=== PATIENT | female | born 1990 | race Caucasian/White ===

== ENCOUNTER 2025-03-14 13:53 | Outpatient (AMB) | payer OTHER, SELFPAY ==
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
[2025-03-14 14:05] VITALS: BP 128/72; PULSE 72; O2SAT 98; BMI 28.3
== END 2025-03-14 14:38 | disposition home or self-care (01) ==
LOC: HO.PMC 13:54
PROVIDERS: PCP Physician Assistant; Visit Provider Nurse Practitioner Family
DX: M54.50 Low back pain, unspecified (principal); G89.29 Other chronic pain; M51.369 Other intervertebral disc degeneration, lumbar region without mention of lumbar back pain or lower extremity pain; G89.4 Chronic pain syndrome
CPT/HCPCS: 99204

== ENCOUNTER 2025-05-11 14:02 | Emergency (ER) | payer OTHER, SELFPAY ==
[2025-05-11] VITALS (8 sets, daily range): BP systolic 112–147; BP diastolic 65–82; PULSE 84–126; RESP 17–20; TEMP 36.8–37; O2SAT 96–97; BMI 27.9
--- NOTE | ~2025-05-11 | CT_ITS ---
CLINICAL HISTORY: blurry vision, lightheaded, unable to walk CT Head without contrast. CT angiography head and neck with contrast. 3D Postprocessing. Comparison: CT/SR - CT HEAD/BRAIN WO IV CON - 05/11/25 16:30 EST Findings: HEAD CT: No intra-axial mass, midline shift, hydrocephalus, or acute hemorrhage. No significant atrophy-like change or white matter disease. The visualized paranasal sinuses and mastoid air cells are normal. The orbits are within normal limits. There is no acute fracture. HEAD AND NECK CTA: Aortic arch and cervical great vessels are patent. Intracranial arteries are patent. No aneurysm, dissection, or occlusion. No abnormal intracranial enhancement. The visualized thyroid gland is unremarkable. No cervical mass or fluid collection. Lung apices clear. No acute fracture. IMPRESSION: 1. Unremarkable head CT. 2. Patent head and neck CTA. This document has been electronically signed by: Norman Lee MD on 05/11/2025 20:34:11
--- NOTE | ~2025-05-11 | CT_ITS ---
CLINICAL HISTORY: dizziness CT head without contrast Comparison: None provided Findings: No intra-axial mass, midline shift, hydrocephalus, or acute hemorrhage. No significant atrophy-like change or white matter disease. The visualized paranasal sinuses and mastoid air cells are normal. The orbits are unremarkable. There is no acute fracture. IMPRESSION: 1. No acute intracranial findings. This document has been electronically signed by: Norman Lee MD on 05/11/2025 17:52:17
--- NOTE | ~2025-05-11 | XR_ITS ---
CLINICAL HISTORY: gen weakness 1 view chest x-ray Comparison: None provided Findings: No consolidation or effusion. Heart size is normal. No acute fracture. IMPRESSION: 1. No acute findings. This document has been electronically signed by: Norman Lee MD on 05/11/2025 17:52:34
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
--- NOTE | 2025-05-11 14:15 | ECG_ITS ---
Test Reason : DIZZINESS Blood Pressure : */* mmHG Vent. Rate : 115 BPM Atrial Rate : 115 BPM P-R Int : 160 ms QRS Dur : 70 ms QT Int : 318 ms P-R-T Axes : 72 73 43 degrees QTcB Int : 439 ms Sinus tachycardia Right atrial enlargement Cannot rule out Anterior infarct , age undetermined Abnormal ECG No previous ECGs available Referred By: Gladys Vail Electronically Signed By: BECKY ESTRADA
[2025-05-11 14:41] LABS: MANUAL DIFF FLAG NO
[2025-05-11 14:43] LABS: Hematocrit 39.0 % (37.0-47.0); Hemoglobin 13.1 g/dl (12.0-16.0); Imm Gran Abs Auto 0.02 X10*3/uL (0.00-0.03); Imm Gran Pct Auto 0.2 % (0.0-0.4); Lymphocytes Absolute Auto 2.9 X10*3/uL (1.2-4.9); Mean Corpuscular HGB Conc 33.6 g/dl (31.0-35.0); Mean Corpuscular Hemoglobin 29.6 pg (27.0-33.0); Mean Corpuscular Volume 88.2 fL (80.0-98.0); NRBC Abs Auto 0.000 X10*3/uL (0.0-0.012); NRBC Pct Auto 0.0 /100WBC (0.0-0.2); Platelet Count 270 X10*3/uL (160-400); Red Blood Count 4.42 X10*6/uL (4.20-5.50); White Blood Count 8.6 X10*3/uL (4.8-10.8)
[2025-05-11 15:08] LABS: Alanine Aminotransferase 57 U/L (0-31); Albumin Level 4.8 g/dL (3.5-5.0); Alkaline Phosphatase 143 U/L (39-117); Anion Gap 13 (12-20); Aspartate Amino Transferase 27 U/L (5-31); Blood Urea Nitrogen 6 mg/dL (9-16); Calcium 9.3 mg/dL (8.4-10.2); Carbon Dioxide 23 mmol/L (22-29); Chloride 107 mmol/L (96-108); Creatinine Clr Calc Pharmacy 81.2; Estimated Glomerular Filt Rate > 60; Magnesium 1.9 mg/dL (1.6-2.6); Potassium 3.6 mmol/L (3.3-5.1); Sodium 139 mmol/L (135-145); Total Protein 7.5 g/dL (6.5-8.0)
[2025-05-11 15:17] LABS: Troponin-I High Sensitivity < 2.7 ng/L (<3.5-17.0)
--- OUTSIDE RECORDS SUMMARY | 2025-05-11 16:52 | XMS_ITS | Encounter Summary ---
Author Organization [employer] Address [address] [place] [address] [address] [place] [address] Care Team Providers Care Manager Supplier Name Role Phone Jose Isaacs MD Unavailable [phone] Pepe Licona NP Primary Care Provider [phone] Reason for Visit * Reason Comments Med Change Request Encounter Details Date Type Department Care Team (Late st Contact Info) Description 11/28/2022 Refill [facility] [address] [place] [address] Virginie Mckeon MD Elevated TSH; Heat intolerance Social History Tobacco Use Types Packs/Day Years Used Date Smoking Tobacco: Every Day Cigarettes Smokeless Tobacco: Never Alcohol Use Standard Drinks/Week Comments Not Currently 0 (1 standard drink = 0.6 oz pur e alcohol) Comments Unknown Sex and Gender Information Value Date Recorded Sex Assigned at Female 01/10/2023 11:09 AM EDT Legal Sex Female 11:43 AM EST Gender Identity Non-Binary 01/10/2023 11:09 AM EDT Sexual Orientation Lesbian or Christensen 01/10/2023 11 :09 AM EDT documented as of this encounter Miscellaneous Notes * Telephone Encounter - Pepe Licona NP - 11/30/2022 3:43 PM EDT Approving, but needs appt for additional refills. documented in this encounter Plan of Treatment Not on file documented as of this encounter Visit Diagnoses Diagnosis Elevated TSH Other abnormal blood chemistry Heat intolerance Unspecified effects of heat and light documented in this encounter Care Teams Manager Supplier Relationship Specialty Start Date End Date Pepe Licona NP [address] [place] [address] PCP - General Internal Medicine 09/07/22 Jose Isaacs MD [address] [place] [address] Referring Physician Internal Medicine 08/30/22 documented as of this encounter
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
--- OUTSIDE RECORDS SUMMARY | 2025-05-11 16:52 | XMS_ITS | Encounter Summary ---
Author Organization [employer] Address [address] [place] [address] [address], [place] [address] Care Team Providers Care Homicide Investigator Name Role Phone Marge Jones NP Primary Care Provider [phone] Jose Isaacs MD Unavailable [phone] Pepe Licona NP Primary Care Provider [phone] Encounter Details Date Type Department Care Team (Late st Contact Info) Description 07/14/2022 Orders Only [facility] [address] [place] [address] Giovany Ballard [address] [place] [address] Breast mass, left Social History Tobacco Use Types Packs/Day Years Used Date Smoking Tobacco: Never Assessed Comments Unknown Sex and Gender Information Value Date Recorded Sex Assigned at Female 01/10/2023 11:09 AM EDT Legal Sex Female 11:43 AM EST Gender Identity Non-Binary 01/10/2023 11:09 AM EDT Sexual Orientation Lesbian or Christensen 01/10/2023 11 :09 AM EDT COVID-19 Exposure Response Date Recorded In the last 10 days, have yo u been in contact with someone who was confirmed or suspected to have Coronavirus/COVID-19? No / Unsure 07/05/2022 1:48 PM EST documented as of this encounter Plan of Treatment Not on file documented as of this encounter Visit Diagnoses Diagnosis Breast mass, left Lump or mass in breast documented in this encounter Care Teams Homicide Investigator Relationship Specialty Start Date End Date Marge Jones NP PCP - General Internal Medicine 02/23/22 08/29/22 Pepe Licona NP [address] [place] [address] PCP - General Internal Medicine 09/07/22 Jose Isaacs MD [address] [place] [address] Referring Physician Internal Medicine 08/30/22 documented as of this encounter
--- OUTSIDE RECORDS SUMMARY | 2025-05-11 16:52 | XMS_ITS | Continuity of Care Document ---
Author Organization [employer] [facility] Address [address] [facility] [address] [place], [place] Phone [phone] Care Team Providers Care Histology Specialist Name Role Phone Sulma Ballard PA-C Care Team Information Receiv er Unavailable RUTH CERON M.D. Care Team Information Rec eiver Unavailable Sulma Ballard PA-C Primary Care Physician Unava ilable Problems Active Problems Provider Date Incontinence of feces Ruth Ceron M.D. On set: 01/10/2025 Graves' disease Ruth Ceron M.D. Onset: 0 07/04/2024 Social History Type Date Description Comments Sex Female Sex Unknown Allergies and adverse reactions Active Allergies Criticality Reaction Severity Comments Date Sulfasalazine Unable to assess criticality 07/04/2024 Product Containing Penicillin And Antibiotic (Product) Unable to assess criticality Not available 07/04/2024 Medications Active Medications SIG Qnty Indications Order ing Provider Date Fairfotgpjb08xj Tablets 1 tab by mouth every day x4d and 1/2 tab x3d 30tabs E05.00 Ruth Ceron M.D. 07/04/2024 Adderall XR10mg Caps ER 24HR Unknown Ondansetron HCL4mg Tablets Take 1 Tablet (4 MG) By Mouth If Needed For Nausea Or Vomiting. Unknown Nvkervyeb3zk Tablets Unknown Qayxchvgvz27ic Capsules Roxane Parada, MSN, STORE MGR-C Fluticasone Qyrueonyjl69ese/Act Suspension [place] 1 [place] By Intranasal Route Every Day Sulma Ballard PA-C Ventolin DDP976(90Base) mcg/Act Aerosol Sulma Ballard PA-C Dxdqbcwc41yo Tablets Take 5MG (Half Tab) In The Am And 10MG (Full Tab) In The PM Misha Alejandro MD Byfinzufpi726jq Capsules Take 3 Capsules By Mouth Every Morning Take 2 Capsules By Mouth AT Noon And 3 CA Unknown Qeovyksgswmo30vf Tablets Take 1 Tablet By Mouth Once A Day Unknown Lamotrigine EV837nu Tablets ER 24HR Kailey Minor NP Diclofenac Yvvpoh84dh Tablets DR Take 1 Tablet Twice A Day By Oral Route as Needed For 14 Days, For Joint Pain. Sulma Ballard PA-C Duloxetine NHA93jo Caps DR Part Unknown Duloxetine WNC49ek Caps DR Part Unknown History Medications Tenofovir Disoproxil Drukwnws188cb Tablets Unknown - 01/10/2025 Gzelcxr29jc Tablets Unknown - 01/10/2025 Sybjxbxvxawou698zh Tablets Unknown - 01/10/2025 Doxycycline Trdzljh188ya Capsules Unknown - 01/10/2025 Gwvszmjkjtu1sv Tablets Dispers Take 1 Tablet By Mouth If Needed Every 8 Hours For Nausea/Vomiting Pal Arizmendi, - 10/16/2024 Clindamycin MPY508cj Capsules Take 1 Capsule By Mouth Three Times A Day For 7 Days Meme Luna NP - 07/04/2024 Vitamin D31.25mg (20775 Ut) Capsules Sulma Ballard PA-C - 07/04/2024 Quetiapine Cyfgbhjp18gv Tablets Unknown - 01/10/2025 Cyclobenzaprine OYN02wh Tablets Take 1 Tablet By Mouth Twice A Day For 7 Days Pal Arizmendi DO - 07/04/2024 Rujecjkin34ko Tablets Pal Arizmendi DO - 07/04/2024 Levothyroxine Mnprrx43hbo Tablets Take 1 Tablet By Mouth Daily 30 Mins Prior To First Meal Of The Day On An Empty Sulma Ballard PA-C - 07/04/2024 Pwwfacsoswirf258lf Tablets Unknown - 07/04/2024 Doxycycline Ylxdinc343zb Capsules Unknown - 07/04/2024 Emtricitabine/Tenofovir Disoproxil Gtkhsrdf665-990xz Tablets Take 1 Tablet Every Day By Oral Route For 23 Days. Sulma Ballard PA-C - 07/04/2024 Jjomwmk44ow Tablets Sulma Ballard PA-C - 07/04/2024 Fluoxetine OVV63xp Capsules Take 1 Capsule By Mouth Every Day In The Morning Unknown - 07/04/2024 Valtoco 15 MG Dose7.5mg/0.1ML LQPK Leti Minore, STORE MGR - 01/10/2025 Fluoxetine NMT96nm Capsules Unknown - 07/04/2024 Lbukdjabbqu3ki Tablets Dispers Sulma Ballard PA-C - 07/04/2024 Levothyroxine Dbofxw65xab Tablets Take 1 Tablet (75 mcg) By Mouth Before Breakfast Unknown - 07/04/2024
--- OUTSIDE RECORDS SUMMARY | 2025-05-11 16:52 | XMS_ITS | Encounter Summary ---
Author Organization [employer] Address [address] [place] [address] 7 [place] [address] Care Team Providers Care Seconds Handler Name Role Phone Jose Isaacs MD Unavailable [phone] Pepe Licona NP Primary Care Provider [phone] Reason for Visit * Reason Comments Med Refill Encounter Details Date Type Department Care Team (Late st Contact Info) Description 08/16/2023 Refill [facility] [address] [place] [address] Pepe Licona NP [address] [place] [address] Elevated TSH; Heat intolerance Social History Tobacco Use Types Packs/Day Years Used Date Smoking Tobacco: Every Day Cigarettes Smokeless Tobacco: Never Alcohol Use Standard Drinks/Week Comments Not Currently 0 (1 standard drink = 0.6 oz pur e alcohol) Depression Answer Date Recorded Patient Health Questionnaire-9 Score 16 02/24/2023 Housing Stability Answer Date Recorded What is your housing situation today? I have harjit alvarez 04/05/[address] you li ve. Do you have problems with any of the following? None of the above 04/05/2023 Food Insecurity Answer Date Recorded Within the past 12 months, y ou worried that your food would run out before you got money to buy more: Often true 04/05/2023 Within the past 12 months,th e food you bought just didn't last and you didn't have enough money to get more: Often true Transportation Answer Date Recorded In the past 12 months, has l ack of transportation kept you from medical appts, meetings, work or from getting things needed for daily living? Yes, it has kept me from medical appointments or getting medications. 03/14/2023 Utilities Answer Date Recorded In the past 12 months, has t he electric, gas, oil or water company threatened to shut off services in your home? Yes 03/14/2023 Depression Answer Date Recorded Patient Health Questionnaire-2 Score 4 02/24/2023 Comments No Sex and Gender Information Value Date Recorded Sex Assigned at Female 01/10/2023 11:09 AM EDT Legal Sex Female 11:43 AM EST Gender Identity Non-Binary 01/10/2023 11:09 AM EDT Sexual Orientation Lesbian or Christensen 01/10/2023 11 :09 AM EDT documented as of this encounter Plan of Treatment Not on file documented as of this encounter Visit Diagnoses Diagnosis Elevated TSH Other abnormal blood chemistry Heat intolerance Unspecified effects of heat and light documented in this encounter Additional Health Concerns Assessment Noted Time PHQ-9 Depression Total Score: 16 023 2:34 PM EDT documented as of this encounter Care Teams Seconds Handler Relationship Specialty Start Date End Date Pepe Licona NP [address] [place] [address] PCP - General Internal Medicine 09/07/22 Jose Isaacs MD [address] [place] [address] Referring Physician Internal Medicine 08/30/22 documented as of this encounter
--- OUTSIDE RECORDS SUMMARY | 2025-05-11 16:52 | XMS_ITS | Encounter Summary ---
Author Organization [employer] Address [address] [place] [address] 7 [place] [address] Care Team Providers Care Seat Pack Inspector Name Role Phone Jose Isaacs MD Unavailable [phone] Pepe Licona NP Primary Care Provider [phone] Reason for Visit * Reason Comments Med Refill Encounter Details Date Type Department Care Team (Late st Contact Info) Description 08/15/2023 Refill [facility] [address] [place] [address] Virginie Mckeon MD Heat intolerance Social History Tobacco Use Types [...] as of this encounter Visit Diagnoses Diagnosis Heat intolerance Unspecified effects of heat and light documented in this encounter Additional Health Concerns Assessment Noted Time PHQ-9 Depression Total Score: 16 023 2:34 PM EDT documented as of this encounter Care Teams Seat Pack Inspector Relationship Specialty Start Date End Date Pepe Licona NP [facility] [place] [address] PCP - General Internal Medicine 09/07/22 Jose Isaacs MD [address] [place] [address] Referring Physician Internal Medicine 08/30/22 documented as of this encounter
--- OUTSIDE RECORDS SUMMARY | 2025-05-11 16:52 | XMS_ITS | Encounter Summary ---
Author Organization [employer] Address [address] [place] [address] [address] [place] [address] Care Team Providers Care Marketing Program Manager Name Role Phone Marge Jones NP Primary Care Provider [phone] Jose Isaacs MD Unavailable [phone] Pepe Licona TELEGRAPHIC TYPEWRITER INSTALLER Primary Care Provider [phone] Reason for Visit * Reason Onset Date Comments Mammo order needs update 07/13/2022 Encounter Details Date Type Department Care Team (Late st Contact Info) Description 07/13/2022 Telephone [facility] [address] [place] [address] Roya Storey NP Mammo order needs update Social History Tobacco Use Types Packs/Day Years Used Date Smoking Tobacco: Every Day Cigarettes Smokeless Tobacco: Never Comments Unknown Sex and Gender Information Value [...] PM EST documented as of this encounter Miscellaneous Notes * Telephone Encounter - Janie Benitez - 07/13/2022 12:10 PM EST Good Morning, The patient listed below has been scheduled with us for a Unilateral DX Mammogram, but upon furtherreview we need the order to be updated for her to have bilateral dx Mammogram. Can you please update the existing order to reflect this? In addition to this we should also be scheduling them for a unilateral breast ultrasound. Can you please put an order in the system for this as well? Thank you somuch and please reach out if you have any questions. Regards, Armand Arcos Radiology Director Global Strategic Publisher Sales [facility] [address] documented in this encounter Plan of Treatment Not on file documented as of this encounter Visit Diagnoses Not on filedocumented in this encounter Care Teams Marketing Program Manager Relationship Specialty Start Date End Date Marge Jones NP PCP - General Internal Medicine 02/23/22 08/29/22 Pepe Licona NP [facility] [place] [address] PCP - General Internal Medicine 09/07/22 Jose Isaacs MD [facility] [place] [address] Referring Physician Internal Medicine 08/30/22 documented as of this encounter
--- OUTSIDE RECORDS SUMMARY | 2025-05-11 16:53 | XMS_ITS | Encounter Summary ---
Author Organization [facility] [employer] Address [address] [place] [address] [address], [place] [address] Care Team Providers Care Coastal Tug Mate Name Role Phone Jose Isaacs MD Unavailable [phone] Pepe Licona NP Primary Care Provider [phone] Encounter Details Date Type Department Care Team ([facility] st Contact Info) Description 08/05/2023 Telephone [facility] [address] [place], [place] [id number] ePpe Licona NP [address] [place] [address] Social History Tobacco Use Types Packs/Day Years [...] AM EDT documented as of this encounter Functional Status * Over the last 2 weeks, how often have you been bothered by any of the following problems? Question Answer Date of Assessment Author SAWYER-7 Total Score 15 08/05/2023 3:35 PM EST Provider, Campaigns Generic * Feeling nervous, anxious, or on edge Answer Date of Assessment Author 3 08/05/2023 3:35 PM EST Provider, Campaigns Generic * Not being able to stop or control worrying Answer Date of Assessment Author 3 08/05/2023 3:35 PM EST Provider, Campaigns Generic * Worrying too much about different things Answer Date of Assessment Author 3 08/05/2023 3:35 PM EST Provider, Campaigns Generic * Trouble relaxing Answer Date of Assessment Author 3 08/05/2023 3:35 PM EST Provider, Campaigns Generic * Being so restless that it is hard to sit still Answer Date of Assessment Author 0 08/05/2023 3:35 PM EST Provider, Campaigns Generic * Becoming easily annoyed or irritable Answer Date of Assessment Author 0 08/05/2023 3:35 PM EST Provider, Campaigns Generic * Feeling afraid as if something awful might happen Answer Date of Assessment Author 3 08/05/2023 3:35 PM EST Provider, Campaigns Generic documented as of this encounter Miscellaneous Notes * Telephone Encounter - Belgica Torres - 08/05/2023 3:12 PM EST Pt called wants to speak to someone before appt day, regarding something that they want for the provider to solve. Pt didn't want to give detail. documented in this encounter Plan of Treatment Not on file documented as of this encounter Visit Diagnoses Not on filedocumented in this encounter Additional Health Concerns Assessment Noted Time PHQ-9 Depression Total Score: 16 023 2:34 PM EDT documented as of this encounter Care Teams Coastal Tug Mate Relationship Specialty Start Date End Date Pepe Licona NP [address] [place] [address] PCP - General Internal Medicine 09/07/22 Jose Isaacs MD [address] [place] [address] Referring Physician Internal Medicine 08/30/22 documented as of this encounter
--- OUTSIDE RECORDS SUMMARY | 2025-05-11 16:53 | XMS_ITS | Encounter Summary ---
Author Organization [employer] Address [address] [place] [address] [address] [address] Care Team Providers Care Otr Flatbed Company Truck Driver Name Role Phone Jose Isaacs MD Unavailable [phone] Pepe Licona NP Primary Care Provider [phone] Reason for Visit * Reason Onset Date Comments Advice Only 04/15/2023 Encounter Details Date Type Department Care Team ([facility] st Contact Info) Description 04/15/2023 Telephone [facility] [address] [place] [address] Pepe Licona NP [address] [place] [address] Advice Only Social History Tobacco Use Types Packs/Day Years [...] encounter Miscellaneous Notes * Telephone Encounter - Julien Valentine - 04/15/2023 12:18 PM EST 5705 - [facility] - ([place]) Patient/Family Caller Name:Dhaval Collins PT Name:Dhaval Collins Patient :1990 Age:(33 yrs) Call Date/Time:04/14/2023 08:07 PM Alt. Phone: 1st Guideline:2402 Trauma - Foot and Ankle - (Adult After-Hours) Final Guideline:2402 Trauma - Foot and Ankle - (Adult After-Hours) Care Advice:Go to ED Now Nurse:yaniv Preliminary Assessment Notes:Pt Is Calling for Medical Advice About Foot. They Fell Down Stairs, Toes Are Going Numb and Hurts To Move.O/C: Jesus Aceves MD [id number]: They/ThemO/C: Jesus Aceves MD [id number]: They/Them Triage Assessment Notes:2018: Pt states they fell down the stairs earlier today and fell all the way down the stairs and has injured right foot and toes are starting to go numb and swelling is jail down right side of foot and swelling gets worse when walking. Pt is instructed to go to ED tonight, pt voices understanding. CARE ADVICE given per Trauma - Foot and Ankle (Adult) guideline. AMP, LATEX RIBBON MACHINE OPERATOR Questions / Responses for 2402-Trauma - Foot and Ankle - (Adult After-Hours) Resp. Initial Assessment Questions Comments 1. MECHANISM: How did the injury happen? (e.g., twisting injury, direct blow) fell down stairs 2. ONSET: When did the injury happen? (Minutes or hours ago) 0830 today 3. LOCATION: Where is the injury located? right foot 4. APPEARANCE of INJURY: What does the injury look like? swelling down right side of right foot YES 5. WEIGHT-BEARING: Can you put weight on that foot? Can you walk (four steps or more)? if needed 6. SIZE: For cuts, bruises, or swelling, ask: How large is it? (e.g., inches or centimeters; entire joint) 7. PAIN: Is there pain? If so, ask: How bad is the pain? (e.g., Scale 1-10; or mild, moderate, severe) 6.5/10 when sitting 8/10 when walking 8. TETANUS: For any breaks in the skin, ask: When was the last tetanus booster? 9. OTHER SYMPTOMS: Do you have any other symptoms? 10. : Is there any chance you are ? When was your last menstrual period? Resp. Triage Questions (Triggering Disposition) Comments YES [1] Numbness (new loss of sensation) of toe(s) AND [2] present now CA: 41, 93, 1 Resp. Care Advice Comments CARE ADVICE given per Trauma - Foot and Ankle (Adult) guideline. GO TO ED NOW: You need to be seen in the Emergency Department. Go to the ER at Hospital. Leave now. Drive carefully. NOTE to TRIAGER - DRIVING: - Another adult should drive. - If there are any problems with automobile transport (e.g., unable to get to the car), then ambulance transport may be necessary. - The patient, sole rounding machine operator, or family members can arrange ambulance transport via private ambulance company or via EMS 911. documented in this encounter Plan of Treatment Not on file documented as of this encounter Visit Diagnoses Not on filedocumented in this encounter Additional Health Concerns Assessment Noted Time PHQ-9 Depression Total Score: 16 023 2:34 PM EDT documented as of this encounter Care Teams Otr [employer]bed [employer] Truck Driver Relationship Specialty Start Date End Date Pepe Licona NP [address] [place] [address] PCP - General Internal Medicine 09/07/22 Jose Isaacs MD [address] [place] [address] Referring Physician Internal Medicine 08/30/22 documented as of this encounter
--- OUTSIDE RECORDS SUMMARY | 2025-05-11 16:53 | XMS_ITS | Encounter Summary ---
Author Organization [employer] Address [address] [place] [address] [address] [address] Care Team Providers Care Book Solicitor Name Role Phone Jose Isaacs MD Unavailable [phone] Pepe Licona NP Primary Care Provider [phone] Reason for Visit * Reason Onset Date Comments Advice Only 06/22/2023 Encounter Details Date Type Department Care Team ([facility] st Contact Info) Description 06/22/2023 Telephone [facility] [address] [place] [address] Pepe Licona NP [address] [place] [address] Advice Only Social History Tobacco Use Types [...] encounter Miscellaneous Notes * Telephone Encounter - Mandy Poe RN - 06/22/2023 9:15 AM EST Per [facility], pt was seen in clinic by Dr. Starr 06/21/2023 after being discharged from [facility] ED. Closing note. * Telephone Encounter - Julien Valentine - 06/22/2023 7:26 AM EST [facility] - [facility] - ([place]) Patient/Family Caller Name:Dhaval Collins PT Name:Dhaval Collins Patient :1990 Age:(33 yrs) Call Date/Time:06/21/2023 09:16 PM Alt. Phone: 1st Guideline:2349 Chest Pain - (Adult After-Hours) Final Guideline:2349 Chest Pain - (Adult After-Hours) Care Advice:Go to ED Now (or PCP triage) Nurse:Matilde Preliminary Assessment Notes:Patient Has Double Vision, Chest Pain and Trouble Breathing; Bp Is 131/68; They Are Seeking A Callback With Medical AdviceO/C: Marilia Loaiza MD [id number]: they/them Triage Assessment Notes:1st attempt: connected with the caller. Per caller she is having a lot of trouble breathing, CP, and double vision. Per caller she has left-sided CP and it started 3-days ago.Per caller the pain is intensified when patient takes a deep breath. Per caller the SOB has been getting worse and the double vision started today, BP prior to the call: 131/68. Per caller her CP is a 4-5/10, comes and goes especially when patient tries to take deep breaths. Per caller her vision is double. Medical HX: asthma, inhaler use. Pt wants to know if she can take inhaler more often. Per caller her inhaler is ordered every 4 hours and pt has been using it every 3 hours. Pt is not overweight. NO diabetes, NO fever, NO sweating. Pt is nauseated and vomited x1 today. Pt was advised to beassessed, Voiced understanding of this, Advice given per: CP - adult after hours, KKRN Questions / Responses for 2349-Chest Pain - (Adult After-Hours) Resp. Initial Assessment Questions Comments YES 1. LOCATION: Where does it hurt? left sided N/A 2. RADIATION: Does the pain go anywhere else? (e.g., into neck, jaw, arms, back) left sided YES 3. ONSET: When did the chest pain begin? (Minutes, hours or days) 3-days YES 4. PATTERN Does the pain come and go, or has it been constant since it started? Does it get worse with exertion? comes/goes YES 5. DURATION: How long does it last (e.g., seconds, minutes, hours) comes/goes YES 6. SEVERITY: How bad is the pain? (e.g., Scale 1-10; mild, moderate, or severe) - MILD (1-3):doesn't interfere with normal activities, abdomen soft and not tender to touch - MODERATE (4-7): interferes with normal activities or awakens from sleep, tender to touch - SEVERE (8-10): excruciatingpain, doubled over, unable to do any normal activities 4-5/10 N/A 7. CARDIAC RISK FACTORS: Do you have any history of heart problems or risk factors for heart disease? (e.g., prior heart attack, angina; high blood pressure, diabetes, being overweight, high cholesterol, smoking, or strong family history of heart disease) YES 8. PULMONARY RISK FACTORS: Do you have any history of lung disease? (e.g., blood clots in lung, asthma, emphysema, control pills) asthma 9. CAUSE: What do you think is causing the chest pain? YES 10. OTHER SYMPTOMS: Do you have any other symptoms? (e.g., dizziness, nausea, vomiting, sweating, fever, difficulty breathing, cough) Vomited x1, pt is nauseated 11. : Is there any chance you are ? When was your last menstrual period? n/a Resp. Triage Questions (Triggering Disposition) Comments YES Taking a deep breath makes pain worse R/O: pleurisy, pneumothorax, pulmonary embolus CA: 42, 87, 17, 1 Resp. Care Advice Comments CARE ADVICE given per Chest Pain (Adult) guideline. CALL EMS IF: - Severe difficulty breathing occurs - Passes out or becomes too weak to stand - You become worse. GO TO ED NOW (or PCP triage): - IF NO PCP TRIAGE: You need to be seen. Go to the ER/UCC at Hospital within the next hour. Leave as soon as you can. - IF PCP TRIAGE REQUIRED: You may need to be seen. Your doctor will want to talk with you to decide what???s best. I'll page him now. If you haven't heard from the on-call doctor within 30 minutes, go directly to the ER/UCC at Hospital. BRING MEDICINES: - Please bring a list of your current medicines when you go to see the doctor. - It is also a good idea to bring the pill bottles too. This will help the doctor to make certain you are taking the right medicines and the right dose. documented in this encounter Plan of Treatment Not on file documented as of this encounter Visit Diagnoses Not on filedocumented in this encounter Additional Health Concerns Assessment Noted Time PHQ-9 Depression Total Score: 16 023 2:34 PM EDT documented as of this encounter Care Teams Book Solicitor Relationship Specialty [place] [address] [place] [id number] PCP - General Internal Medicine 09/07/22 Jose Isaacs MD [facility] [place] [address] Referring Physician Internal Medicine 08/30/22 documented as of this encounter
--- OUTSIDE RECORDS SUMMARY | 2025-05-11 16:53 | XMS_ITS | Encounter Summary ---
Author Organization [employer] Address [address] [place] [address] [address] [place] [address] Care Team Providers Care Oracle Applications Developer Name Role Phone Jose Isaacs MD Unavailable [phone] Pepe Licona NP Primary Care Provider [phone] Reason for Visit * Reason Onset Date Comments Advice Only 07/09/2023 Encounter Details Date Type Department Care Team ([facility] st Contact Info) Description 07/09/2023 Telephone [facility] [address] [place] [address] Pepe Licona NP [address] [place] [address] Advice Only Social History Tobacco Use Types [...] Date of Assessment Author SAWYER-7 Total Score 16 07/09/2023 10:33 AM EST Provider, Campaigns Generic * Feeling nervous, anxious, or on edge Answer Date of Assessment Author 3 07/09/2023 10:33 AM EST Provider , Campaigns Generic * Not being able to stop or control worrying Answer Date of Assessment Author 3 07/09/2023 10:33 AM EST Provider , Campaigns Generic * Worrying too much about different things Answer Date of Assessment Author 3 07/09/2023 10:33 AM EST Provider , Campaigns Generic * Trouble relaxing Answer Date of Assessment Author 3 07/09/2023 10:33 AM EST Provider , Campaigns Generic * Being so restless that it is hard to sit still Answer Date of Assessment Author 3 07/09/2023 10:33 AM EST Provider , Campaigns Generic * Becoming easily annoyed or irritable Answer Date of Assessment Author 1 07/09/2023 10:33 AM EST Provider , Campaigns Generic * Feeling afraid as if something awful might happen Answer Date of Assessment Author 0 07/09/2023 10:33 AM EST Provider , Campaigns Generic documented as of this encounter Miscellaneous Notes * Telephone Encounter - Marilynn Armenta RN - 07/12/2023 3:56 PM EST RN called pt re: med refill/ follow-up Pepe Corl, PLANT TENDER: Can we check in w pt to confirm they are taking the new levothyroxine dose of 75 mcg? It would be good to get follow up scheduled. In person would be much better than telehealth. Thanks! RN DAVID with CB#[phone], encouraged pt to check [employer] message. * Telephone Encounter - Kait Proctor - 07/09/2023 12:16 PM EST 5705 - [facility] - ([place]) Patient/Family Caller Name:Dhaval Collins PT Name:Dhaval Collins Patient :1990 Age:(33 yrs) Call Date/Time:07/09/2023 09:00 AM Alt. Phone: 1st Guideline:2445 Vision Loss or Change - (Adult After-Hours) Final Guideline:2445 Vision Loss or Change - (Adult After-Hours) Care Advice:Go to ED Now (or PCP triage) Nurse:Rock Preliminary Assessment Notes:Dhaval Called in Due To Double Vision, Dizziness, Nausea & Would LikeTo Get an Appointment Franky.O/C: Jose Avelar Triage Assessment Notes:Pt reports double vision that began yesterday, with nausea and vomiting x2,off balance. Pt able to see if one eye is covered. Pt states that symptoms worsen with standing. Ptconfirms similar symptoms two weeks ago and neuro advised pt to visit ED with additional symptoms after initial evaluation; no official diagnosis made. Pt denies fever, cp, sob, numbness, tingling, pain. Message sent to o/c via [employer]--confirmed that pt called earlier and team contacted regardingsymptoms. Pt informed and also made aware to call office for appt today per o/c. Pt verbalized understanding. CARE ADVICE given per Vision Loss or Change (Adult) guideline. MT RN Questions / Responses for 2445-Vision Loss or Change - (Adult After-Hours) Resp. Initial Assessment Questions Comments YES 1. DESCRIPTION: What is the vision loss like? Describe it for me. (e.g., complete vision loss, blurred vision, double vision, floaters, etc.) double vision YES 2. LOCATION: One or both eyes? If one, ask: Which eye? both 3. SEVERITY: Can you see anything? If so, ask: What can you see? (e.g., fine print) can see if one eye covered YES 4. ONSET: When did this begin? Did it start suddenly or has this been gradual? yesterday 5. PATTERN: Does this come and go, or has it been constant since it started? constant, worse whenstanding NO 6. PAIN: Is there any pain in your eye(s)? (Scale 1-10; or mild, moderate, severe) no YES 7. CONTACTS-GLASSES: Do you wear contacts or glasses? contacts and glasses YES 8. CAUSE: What do you think is causing this visual problem? unsure YES 9. OTHER SYMPTOMS: Do you have any other symptoms? (e.g., headache, arm or leg weakness) nausea and vomiting x2, off balance 10. : Is there any chance you are ? When was your last menstrual period? Resp. Triage Questions (Triggering Disposition) Comments YES Double vision R/O: cranial nerve (III, IV, ) palsy CA: 42, 20, 80, 1 Resp. Care Advice Comments CARE ADVICE given per Vision Loss or Change (Adult) guideline. ALTERNATE DISPOSITION - CALL INVESTIGATION LIEUTENANT NOW: If you have a private socket welder helper (eye doctor), call the eye doctor now. If you haven't heard from the eye doctor within 30 minutes, go to the emergency department. GO TO ED NOW (or PCP triage): [...] go directly to the ER/UCC at Hospital. DRIVING: Another adult should drive. documented in this encounter Plan of Treatment Not on file documented as of this encounter Visit Diagnoses Diagnosis Abnormal serum thyroid stimulating hormone (TSH) level documented in this encounter Additional Health Concerns Assessment Noted Time PHQ-9 Depression Total Score: 16 023 2:34 PM EDT documented as of this encounter Care Teams Oracle Applications Developer Relationship Specialty Start Date End Date Pepe Licona NP [facility] [place] [address] PCP - General Internal Medicine 09/07/22 Jose Isaacs MD [facility] [place] [address] Referring Physician Internal Medicine 08/30/22 documented as of this encounter
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
--- OUTSIDE RECORDS SUMMARY | 2025-05-11 16:53 | XMS_ITS | Encounter Summary ---
Author Organization [employer] Address [address] [facility] [address] [place] [address] Care Team Providers Care Health Administration Teacher Name Role Phone Jose Isaacs MD Unavailable [phone] Pepe Licona NP Primary Care Provider [phone] Encounter Details Date Type Department Care Team (Late st Contact Info) Description 08/08/2023 Orders Only [facility] [address] [place] [address] Bernadine Walsh Social History Tobacco Use Types Packs/Day Years [...] documented as of this encounter Care Teams Health Administration Teacher Relationship Specialty Start Date End Date Pepe Licona NP [address] [place] [address] PCP - General Internal Medicine 09/07/22 Jose Isaacs MD [address] [place] [address] Referring Physician Internal Medicine 08/30/22 documented as of this encounter
--- OUTSIDE RECORDS SUMMARY | 2025-05-11 16:53 | XMS_ITS | Encounter Summary ---
Author Organization [employer] Address [address] [place] [address] [address] [place] [address] Care Team Providers Care Esthetician/Spa Coordinator Name Role Phone Jose Isaacs MD Unavailable [phone] Pepe Licona NP Primary Care Provider [phone] Reason for Visit * Reason Onset Date Comments Care Coordination 05/06/2023 Encounter Details Date Type Department Care Team ([facility] st Contact Info) Description 05/06/[address] [facility] [address] [place] [address] Pepe Licona NP [address] [place] [address] Care Coordination Social History Tobacco Use Types Packs/Day Years [...] Date of Assessment Author SAWYER-7 Total Score 19 05/09/2023 9:37 AM EST Provider, Campaigns Generic * Feeling nervous, anxious, or on edge Answer Date of Assessment Author 3 05/09/2023 9:37 AM EST Provider, Campaigns Generic * Not being able to stop or control worrying Answer Date of Assessment Author 3 05/09/2023 9:37 AM EST Provider, Campaigns Generic * Worrying too much about different things Answer Date of Assessment Author 3 05/09/2023 9:37 AM EST Provider, Campaigns Generic * Trouble relaxing Answer Date of Assessment Author 3 05/09/2023 9:37 AM EST Provider, Campaigns Generic * Being so restless that it is hard to sit still Answer Date of Assessment Author 3 05/09/2023 9:37 AM EST Provider, Campaigns Generic * Becoming easily annoyed or irritable Answer Date of Assessment Author 1 05/09/2023 9:37 AM EST Provider, Campaigns Generic * Feeling afraid as if something awful might happen Answer Date of Assessment Author 3 05/09/2023 9:37 AM EST Provider, Campaigns Generic documented as of this encounter Miscellaneous Notes * Telephone Encounter - Mandy Poe RN - 05/09/2023 4:34 PM EST See [employer] message with pt for further details. * Telephone Encounter - Mandy Poe RN - 05/09/2023 12:53 PM EST Per notes from pt's neurologist at [facility]: Daisy Dennison MD - 05/06/2023 11:55 AM EST Dhaval Collins was scheduled for a first time visit with me on 05/06/2023 at 9am. They did not show up. After their appointment, I was forwarded several of their gateway portal messages regarding a varietyof complaints. One message stated that the pain was so bad that they wanted to end their life . I called them back and left a voicemail asking to call our office at [phone]. I told them that ifthey are having any suicidal ideation to please go to the nearest emergency room to be evaluated. Vickie will forward my message to their psychiatrist and primary care physician as well. Called pt x2 at [phone] to assess for SI and schedule f/u with PCP in order to discuss pain, trouble swallowing, fatigue pt reported on 05/06/2023 via [employer] message. Unable to LVM. Sent [employer] message. Contacted on-call [employer] MA[employer]ER Marilia Chaparro, who will be available to discuss case later this afternoon. * Telephone Encounter - Agustin Early - 05/06/2023 2:22 PM EST [facility] provider wants a peer to peer with pcp regarding this patient. Says patient has SI and wants pcp to be aware says never met patient was a no show at their appointment and would like someone to check in on them. documented in this encounter Plan of Treatment Not on file documented as of this encounter Visit Diagnoses Not on filedocumented in this encounter Additional Health Concerns Assessment Noted Time PHQ-9 Depression Total Score: 16 02/24/ 023 2:34 PM EDT documented as of this encounter Care Teams Esthetician/Spa Coordinator Relationship Specialty Start Date End Date Pepe Licona NP [address] [place] [address] PCP - General Internal Medicine 09/07/22 Jose Isaacs MD [address] [place] [address] Referring Physician Internal Medicine 08/30/22 documented as of this encounter
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
[2025-05-11 17:47] LABS: Erythrocyte Sedimentation Rate 20 MM/HR (0-20)
[2025-05-11 18:12] LABS: Free T4 (Free Thyroxine) 0.71 ng/dL (0.71-1.85)
[2025-05-11] MEDS: iohexoL 350 MG/ML 100 ML INFUS..BTL IV (19:27)
[2025-05-11 20:44] LABS: Appearance Urine Clear; Glucose Urine UA Negative (Negative); PH 7.0 (5.0-9.0); Specific Gravity - Urine >= 1.030 (1.005-1.025)
[2025-05-11 20:46] LABS: Cannabinoid Screen Urine POSITIVE (Not Detect)
== END 2025-05-11 21:43 | disposition home or self-care (01) ==
PROVIDERS: Physician Assistant; Physician Assistant Medical; Emergency Provider Emergency Medicine Emergency Medical Services; PCP Physician Assistant
DX: R42 Dizziness and giddiness (principal); H53.8 Other visual disturbances; R00.0 Tachycardia, unspecified; R53.1 Weakness; R94.31 Abnormal electrocardiogram [ECG] [EKG]; F41.9 Anxiety disorder, unspecified; J45.909 Unspecified asthma, uncomplicated; G40.909 Epilepsy, unspecified, not intractable, without status epilepticus; Z79.899 Other long term (current) drug therapy; Z79.51 Long term (current) use of inhaled steroids; Z87.891 Personal history of nicotine dependence
CPT/HCPCS: 36415; 70450; 70496; 70498; 71045; 80053; 80307; 81001; 83735; 84439; 84443; 84484; 84702; 85025; 85652; 86140; 93005; 96360; 96361; 99284; 99285; Q9967

== ENCOUNTER → 2025-05-11 14:15 | Outpatient (BNV) | payer OTHER, SELFPAY | PROVIDERS: Emergency Provider Emergency Medicine Emergency Medical Services; PCP Physician Assistant; Visit Provider Internal Medicine | DX: R00.0 Tachycardia, unspecified (principal); I51.7 Cardiomegaly | CPT/HCPCS: 93010 ==

== ENCOUNTER → 2025-05-11 14:16 | Outpatient (BNV) | payer OTHER, SELFPAY | PROVIDERS: Emergency Provider Emergency Medicine Emergency Medical Services; PCP Physician Assistant; Visit Provider Student in an Organized Health Care Education/Training Program | DX: R42 Dizziness and giddiness (principal); H53.8 Other visual disturbances; R26.0 Ataxic gait; R53.1 Weakness | CPT/HCPCS: 70450; 70496; 70498; 71045 ==